=== PATIENT | female | born 1955 | race Caucasian/White ===

== ENCOUNTER 2016-12-20 19:19 | Emergency (ER) | payer OTHER ==
[~2016-12-20] VITALS: Ht 180.3 cm; Wt 93.0 kg
[~2016-12-20 19:19] MED LIST: ALEVE220 M1 PO; IBUPROFEN600 MG PO; MACROBID 100 M100 MG PO; TRAMADOL HCL50 MG PO; ULTRAM50 MG PO; VITAMIN B-125000 MCG SL
[2016-12-20] MEDS ORDERED: OMEPRAZOLE20 MG PO (22:31)
== END 2016-12-20 22:49 | disposition home or self-care (01) ==
LOC: ED 19:19
DX: K31.89 Other diseases of stomach and duodenum (principal); Z87.442 Personal history of urinary calculi; J45.909 Unspecified asthma, uncomplicated; Z88.2 Allergy status to sulfonamides; Z88.8 Allergy status to other drugs, medicaments and biological substances; Z88.5 Allergy status to narcotic agent; Z88.1 Allergy status to other antibiotic agents; Z79.899 Other long term (current) drug therapy
CPT/HCPCS: 80053; 81001; 83690; 85025; 85610; 85730; 87077; 87088; 87186; 99283

== ENCOUNTER 2017-12-23 22:38 | Emergency (ER) | payer OTHER ==
[~2017-12-23] VITALS: Ht 180.3 cm; Wt 93.0 kg
[~2017-12-23 22:38] MED LIST changes: +OMEPRAZOLE20 MG PO
[2017-12-23] MEDS ORDERED: ASPIRIN500 MG PO (22:55)
== END 2017-12-24 01:39 | disposition home or self-care (01) ==
LOC: ED 22:38
DX: E04.1 Nontoxic single thyroid nodule (principal); Z88.2 Allergy status to sulfonamides; Z88.8 Allergy status to other drugs, medicaments and biological substances; Z88.1 Allergy status to other antibiotic agents; Z88.5 Allergy status to narcotic agent; Z79.899 Other long term (current) drug therapy
CPT/HCPCS: 80053; 84436; 84439; 84443; 84479; 84480; 85025; 96360; 99284; J7030

== ENCOUNTER 2018-11-02 20:32 | Emergency (ER) | payer OTHER ==
[~2018-11-02] VITALS: Ht 180.3 cm; Wt 93.0 kg
--- OUTSIDE RECORDS SUMMARY | ~2018-11-02 | XMS | Clinical Summary ---
Demographics + + + | Address | [address] | | | [place] [address] | + + + | Home Phone | | + + + | Preferred Language | Unknown | + + + | Marital Status | | + + + | Faith Affiliation | 1013 | + + + | Race | Unknown | + + + | Ethnic Group | Unknown | + + + Author + + + | Author | [facility] | + + + | Organization | [facility] | + + + | Address | Unknown | + + + | Phone | Unavailable | + + + Support + + +---------+ + | Name | Relationship | Address | Phone | + + +---------+ + | Rolanda Lennon | ECON | Unknown | | + + +---------+ + Care Team Providers + +------+ + | Care Helmet Hat Brim Cutter Name | Role | Phone | + +------+ + | Los Self MD | PP | | + +------+ + Allergies + + + + + + | Active Allergy | Reactions | Severity | Noted | Comments | | | | | Date | | + + + + + + | Ciprofloxacin | Rash | Medium | 09/02/19 | | | | | | 18 | | + + + + + + | Codeine | Gera Jeff | High | 09/02/19 | And hives | | | Reaction | | 18 | | + + + + + + | Meperidine | Gera Jeff | High | 09/02/19 | | | | Reaction | | 18 | | + + + + + + | Hydrocodone | Hives | High | 09/02/19 | And gera | | | | | 18 | johnsons synd | + + + + + + | Oxycodone | Gera Jeff | High | 09/02/19 | And hives | | | Reaction | | 18 | | + + + + + + | Pipobroman | Hives | High | 10/24/19 | | | | | | 19 | | + + + + + + Current Medications + + +---------+---------+------+------+-------+ | Prescription | Sig. | Disp. | Refills | Star | End | Statu | | | | | | t | Date | s | | | | | | Date | | | + + +---------+---------+------+------+-------+ | aspirin 325 MG | Take 325 mg by mouth | | | | | Activ | | tablet | daily with | | | | | e | | | breakfast. | | | | | | + + +---------+---------+------+------+-------+ | vitamin E 400 UNIT | Take 400 Units by | | | | | Activ | | capsule | mouth daily. | | | | | e | + + +---------+---------+------+------+-------+ | cyanocobalamin | Take 1,000 mcg by | | | | | Activ | | (VITAMIN B-12) 1000 | mouth daily. | | | | | e | | MCG tablet | | | | | | | + + +---------+---------+------+------+-------+ | cholecalciferol | Take 1,000 Units by | | | | | Activ | | (VITAMIN D-3) 1000 | mouth daily. | | | | | e | | units tablet | | | | | | | + + +---------+---------+------+------+-------+ | CALCIUM PO | Take 250 mg by | | | | | Activ | | | mouth. | | | | | e | + + +---------+---------+------+------+-------+ | fish oil omega-3 | Take 1,000 mg by | | | | | Activ | | fatty acids 1000 MG | mouth. | | | | | e | | capsule | | | | | | | + + +---------+---------+------+------+-------+ | Artem Hernández | Take by mouth. | | | | | Activ | | Prudencio (TURMERIC | | | | | | e | | ROOT) POWD | | | | | | | + + +---------+---------+------+------+-------+ | gabapentin | Take 1 capsule by | 90 | 0 | 10/09 | 10/09 | Activ | | (NEURONTIN) 300 MG | mouth 3 (three) | capsule | | 10/28 | 09/28 | e | | capsule | times daily. 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 | +--------+---------+ + + + from Last 3 Months Family History + + +------+ + | Medical History | Relation | Name | Comments | + + +------+ + | No Known Problems | Brother | | | + + +------+ + | No Known Problems | Cousin | | | + + +------+ + | No Known Problems | Daughter | | | + + +------+ + | No Known Problems | Father | | | + + +------+ + | No Known Problems | Maternal | | | | | Aunt | | | + + +------+ + | Breast cancer | Maternal | | post ryan | | | Grandmoth | | | | | er | | | + + +------+ + | Breast cancer | Mother | | | + + +------+ + | No Known Problems | Paternal | | | | | Aunt | | | + + +------+ + | Breast cancer | Paternal | | | | | Grandmoth | | | | | er | | | + + +------+ + | BRCA 1/2 | Sister | | BRCA2 | + + +------+ + | No Known Problems | Son | | | + + +------+ + | Endometrial cancer | Neg Hx | | | + + +------+ + | Ovarian cancer | Neg Hx | | | + + +------+ + | Uterine cancer | Neg Hx | | | + + +------+ + + +------+--------+ + | Relation | Name | Status | Comments | + +------+--------+ + | Brother | | | | + +------+--------+ + | Cousin | | | | + +------+--------+ + | Daughter | | | | + +------+--------+ + | Father | | | | + +------+--------+ + | Maternal Aunt | | | | + +------+--------+ + | Maternal Grandmother | | | | + +------+--------+ + | Mother | | | | + +------+--------+ + | Paternal Aunt | | | | + +------+--------+ + | Paternal Grandmother | | | | + +------+--------+ + | Sister | | | | + +------+--------+ + | Son | | | | + +------+--------+ + Social History + +-------+ +--------+------+ | Tobacco Use | Types | Packs/Day | Years | Date | | | | | Used | | + +-------+ +--------+------+ | Never Smoker | | | | | + +-------+ +--------+------+ + +---+---+---+ | Smokeless Tobacco: | | | | | Never Used | | | | + +---+---+---+ + + +---------+ + | Alcohol Use | Drinks/We | oz/Week | Comments | | | ek | | | + + +---------+ + | No | | | | + + +---------+ + + + + | Sex Assigned at | Date Recorded | | | | + + + | Not on file | | + + + Last Filed Vital Signs + + + + | Vital Sign | Reading | Time Taken | + + + + | Blood Pressure | 102/66 | 09/19/2018 10:50 AM PDT | + + + + | Pulse | 61 | 09/19/2018 10:50 AM PDT | + + + + | Temperature | 36.7 C (98.1 F) | 09/01/2017 9:43 AM PDT | + + + + | Respiratory Rate | 16 | 09/01/2017 1:42 PM PDT | + + + + | Oxygen Saturation | 100% | 09/19/2018 10:50 AM PDT | + + + + | Inhaled Oxygen | - | - | | Concentration | | | + + + + | Weight | 95.3 kg (210 lb) | 10/23/2018 7:55 AM PDT | + + + + | Height | 154.9 cm (5' 1") | 10/23/2018 7:55 AM PDT | + + + + | Body Mass Index | 39.68 | 10/23/2018 7:55 AM PDT | + + + + Plan of Treatment +--------+---------+ + + + | Date | Type | Specialty | Care Team | Description | +--------+---------+ + + + | 11/20/ | Office | | Kobe Be DO | | | 2019 | Visit | | [address] [facility] | | | | | | [place] [address] | | | | | | [phone] | | | | | | | | +--------+---------+ + + + + + + + + | Health Maintenance | Due Date | Last Done | Comments | + + + + + | Cervical Cancer | | | | | Screening (Pap) | 8 | | | + + + + + | Colon Cancer | | | | | Screening | 8 | | | | (Colonoscopy) | | | | + + + + + | Vaccine: Zoster (1 | | | | | of 2) | 8 | | | + + + + + | Vaccine: Influenza | | 03/22/2017, 02/19/2013 | | | (Season Ended) | 9 | | | + + + + + | Breast Cancer | | 03/28/2018, 06/22/2017 | | | Screening | 0 | | | | (Mammogram) | | | | + + + + + | Vaccine: | | 12/10/2011 | | | Dtap/Tdap/Td (2 - | 2 | | | | Td) | | | | + + + + + Procedures + +--------+ + + + | Procedure Name | Priori | Date/Time | Associated Diagnosis | Comments | | | ty | | | | + +--------+ + + + | XR ELBOW LEFT | Routin | 09/19/2018 | Left elbow pain | Results for this | | | e | 11:16 AM | | procedure are in the | | | | PDT | | results section. | + +--------+ + + + | XR WRIST LEFT | Routin | 09/19/2018 | Pain and swelling | Results for this | | | e | 11:03 AM | of left wrist | procedure are in the | | | | PDT | | results section. | + +--------+ + + + from Last 3 Months Results X-ray elbow left (09/19/2018 11:16 AM) + + + | Impressions | Performed At | + + + | Left elbow shows normal osseous alignment without any fracture | [facility] | | nor dislocation Electronically signed by: Minor Walton MD | RADIOLOGY | | 09/19/2018 6:15 PM | | + + + + + + | Narrative | Performed At | + + + | INDICATION: | [facility] | | Left elbow and forearm pain COMPARISON: None TECHNIQUE: Multiple views | RADIOLOGY | | of the left elbow FINDINGS: Left elbow shows normal osseous alignment | | | without any fracture nor dislocation | | | | | |TECHNIQUE: Multiple views of the left elbow | | | | | |FINDINGS: Left elbow shows normal osseous alignment without any fracture | | |nor dislocation | | | | | + + + + + + + + | Performing | Address | City/State/Zipcode | Phone Number | | Organization | | | | + + + + + | [facility] | [address] | [place] [address] | | + + + + + X-ray wrist left (09/19/2018 11:03 AM) + + + | Impressions | Performed At | + + + | Left wrist shows normal osseous alignment but does show ulnar | [facility] | | positivity. No acute fracture noted. No carpal instability | RADIOLOGY | | noted. Electronically signed by: Minor Walton MD 09/19/2018 | | | 6:17 PM | | + + + + + + | Narrative | Performed At | + + + | INDICATION: | [facility] | | left wrist and forearm pain COMPARISON: None TECHNIQUE: Multiple views | RADIOLOGY | | of the left wrist FINDINGS: Left wrist shows normal osseous alignment | | | but does show ulnar positivity. No acute fracture noted. No | | | carpal instability noted. | | |TECHNIQUE: Multiple views of the left wrist | | | | | |FINDINGS: Left wrist shows normal osseous alignment but does show ulnar | | |positivity. No acute fracture noted. No carpal instability noted. | | | | | + + + + + + + + | Performing | Address | City/State/Zipcode | Phone Number | | Organization | | | | + + + + + | [facility] | [address] | [place] [address] | | + + + + + from Last 3 Months Insurance + +--------+ +------+-------+---------+ | Payer | Benefi | Subscriber | Type | Phone | Address | | | t Plan | ID | | | | | | / | | | | | | | Group | | | | | + +--------+ +------+-------+---------+ | L[employer]I - SELF INS | L&I - | [id number] | | | | | GENERIC | SELF | | | | | | | INS | | | | | | | GENERI | | | | | | | C | | | | | + +--------+ +------+-------+---------+ + +--------+ +--------+ + + | Guarantor Name | Accoun | Relation to | Date | Phone | Billing Address | | | t Type | Patient | of | | | | | | | | | | + +--------+ +--------+ + + | BHUMI JIANG | Worker | Self | [birth year] | Home: | [address] [employer] | | | s Comp | | 1955 | +- | [place] [address] | | | | | | [address] | | + +--------+ +--------+ + + | BHUMI JIANG | Person | Self | [birth year] | Home: | [address] [address] [address] | | | al/Fam | | 1955 | +- | , [place] [address] | | | alexandra | | | [birth year] | | + +--------+ +--------+ + +
--- OUTSIDE RECORDS SUMMARY | ~2018-11-02 | XMS | Encounter Summary ---
Demographics + + + | Address | [address] | | | [place] [address] | + + + | Home Phone | | + + + | Preferred Language | Unknown | + + + | Marital Status | | + + + | Judaism Affiliation | 1013 | + + + | Race | Unknown | + + + | Ethnic Group | Unknown | + + + Author + + + | Author | [facility] | + + + | Organization | [facility] | + + + | Address | Unknown | + + + | Phone | Unavailable | + + + Support + + +---------+ + | Name | Relationship | Address | Phone | + + +---------+ + | Rolanda Lennon | ECON | Unknown | | + + +---------+ + Care Team Providers + +------+ + | Care Behavior Support Specialist Name | Role | Phone | + +------+ + | Kei Self MD | PCP | | + +------+ + Reason for Visit + + + | Reason | Comments | + + + | Hand Pain | left wrist pain | + + + Consultation (Routine) + + + + + + + | Status | Reason | Specialty | Diagnoses / | Referred By | Referred To | | | | | Procedures | Contact | Contact | + + + + + + + | Authorized | Specialty | Dolorology | Diagnoses | [place], | [facility] | | | Services | | Pain and | Minor Junior MD | [place] | | | Required | | swelling of | [address] | Pain Mgmt | | | | | left wrist | [address] | [address] | | | | | Complex | [place], [place] | [place], | | | | | regional | [address] | [place] | | | | | pain | Phone: | [phone] | | | | | syndrome | [phone] | Phone: | | | | | type 1 of | Fax: | [phone] | | | | | left upper | [phone] | Fax: | | | | | extremity | | [phone] | + + + + + + + Encounter Details +--------+---------+ + + + | Date | Type | Department | Care Team | Description | +--------+---------+ + + + | 10/23/ | Office | [facility] | Kobe Be DO | Left wrist pain | | 2019 | Visit | [facility] | [address] | (Primary Dx) | | | | MEDICINE [facility] | [place] [address] | | | | | PAIN [address] | [phone] | | | | | [place], [place] | | | | | | [address] | | | | | | [phone] | | | +--------+---------+ + + + Social History + +-------+ +--------+------+ | [...] on file | | + + + as of this encounter Last Filed Vital Signs + + + + | Vital Sign | Reading | Time Taken | + + + + | Blood Pressure | - | - | + + + + | Pulse | - | - | + + + + | Temperature | - | - | + + + + | Respiratory Rate | - | - | + + + + | Oxygen Saturation | - | - | + + + + | Inhaled [...] AM PDT | + + + + in this encounter Progress Notes Kobe Be DO - 10/23/2018 8:00 AM PDTFormatting of this note may be different from micah mendez. [facility]: Interventional Pain Management 10/23/2018 Bhumi Dobbins [place] 1955 Chief Complaint Patient presents with Hand Pain left wrist pain HISTORY OF PRESENT ILLNESS Hand Pain The incident occurred more than 1 week ago. The pain is present in the left hand and left w rist. The quality of the pain is described as aching and stabbing. The pain radiates to the left hand. The pain is at a severity of 4/10. The pain is mild. Associated symptoms include numbness. Pertinent negatives include no chest pain. The treatment provided mild relief. REVIEW OF SYSTEMS Review of Systems Constitutional: Positive for activity change. Negative for appetite change, fatigue and fev er. HENT: Negative for congestion, trouble swallowing and voice change. Eyes: Negative for photophobia, discharge and visual disturbance. Respiratory: Negative for apnea, cough, shortness of breath and wheezing. Cardiovascular: Negative for chest pain, palpitations and leg swelling. Gastrointestinal: Negative for abdominal pain, diarrhea, nausea and vomiting. Endocrine: Negative for cold intolerance, heat intolerance and polyuria. Musculoskeletal: Positive for arthralgias, back pain and gait problem. Negative for joint s welling and neck pain. Skin: Negative for color change and rash. Allergic/Immunologic: Negative for environmental allergies and food allergies. Neurological: Positive for numbness. Negative for dizziness, seizures, weakness, light-head edness and headaches. Hematological: Does not bruise/bleed easily. Psychiatric/Behavioral: Negative for dysphoric mood and suicidal ideas. The patient is not nervous/anxious. All other systems reviewed and are negative. Past Medical History Diagnosis Date Breast disorder Breast pain 03/28/2018 x1mos christine diffuse Chronic kidney disease Pernicious anemia Postmenopausal status approx 33 Thoracic outlet syndrome Past Surgical History Procedure Laterality Date BREAST EXCISIONAL BIOPSY Right age 33 benign CHOLECYSTECTOMY HYSTERECTOMY OOPHORECTOMY Bilateral age 33 UNLISTED PROCEDURE ARTHROSCOPY Allergies Allergen Reactions Codeine Cisneros Tomer Reaction And hives Demerol [Meperidine] Cisneros Tomer Reaction Hydrocodone Hives And cisneros johnsons synd Oxycodone Cisneros Tomer Reaction And hives Vercyte [Pipobroman] Hives Ciprofloxacin Rash Prior to Admission medications Medication Sig Start Date End Date Taking? Authorizing Provider aspirin 325 MG tablet Take 325 mg by mouth daily with breakfast. Yes Historical Provider CALCIUM PO Take 250 mg by mouth. Yes Historical Provider cholecalciferol (VITAMIN D-3) 1000 units tablet Take 1,000 Units by mouth daily. Yes Hist orical Provider cyanocobalamin (VITAMIN B-12) 1000 MCG tablet Take 1,000 mcg by mouth daily. Yes Historic al Provider fish oil omega-3 fatty acids 1000 MG capsule Take 1,000 mg by mouth. Yes Historical Provi larry Turmeric, Curcuma Longa, (TURMERIC ROOT) POWD Take by mouth. Yes Historical Provider vitamin E 400 UNIT capsule Take 400 Units by mouth daily. Yes Historical Provider Family History Problem Relation Age of Onset Breast cancer Mother 58 BRCA 1/2 Sister BRCA2 No Known Problems Daughter Breast cancer Maternal Grandmother post ryan No Known Problems Maternal Aunt No Known Problems Father No Known Problems Brother No Known Problems Son Breast cancer Paternal Grandmother 36 No Known Problems Paternal Aunt No Known Problems Cousin Ovarian cancer Neg Hx Uterine cancer Neg Hx Endometrial cancer Neg Hx Social History Social History Marital status: Spouse name: N/A Number of children: N/A Years of education: N/A Occupational History Not on file. Social History Main Topics Smoking status: Never Smoker Smokeless tobacco: Never Used Alcohol use No Drug use: No Sexual activity: Not on file Other Topics Concern Not on file Social History Narrative No narrative on file PHYSICAL EXAM Vital Signs: Ht 1.549 m (5' 1") | Wt 95.3 kg (210 lb) | BMI 39.68 kg/m Physical Exam Constitutional: She is oriented to person, place, and time. She appears well-developed and well-nourished. HENT: Head: Normocephalic and atraumatic. Eyes: Conjunctivae are normal. Neck: No tracheal deviation present. Cardiovascular: Normal rate and regular rhythm. Pulmonary/Chest: Effort normal. Abdomina/Gl: Soft. Bowel sounds are normal. Neurological: She is alert and oriented to person, place, and time. Skin: Skin is warm and dry. Psychiatric: She has a normal mood and affect. Her behavior is normal. Judgment normal. Vitals reviewed. Left Hand Exam Tenderness The patient is experiencing tenderness in the ann area. Range of Motion Wrist Extension: abnormal Flexion: abnormal Pronation: abnormal Supination: abnormal DATA No results found. PROBLEM LIST 1. Left wrist pain ASSESSMENT & PLAN Mrs. Fontaine is a 63-year-old female here complaining of left-sided wrist pain without any s igns or symptoms of CRPS. She does not have any hypersensitivity. No skin color changes. She does have decreased range of motion, though and tenderness to palpation. We did discuss starting her on gabapentin 300 mg and then have her follow up in a month for reevaluation. I do not think stellate ganglion block would help her at this time. She does agree with e plan. We did go over the risks and benefits of the medication. She was given a copy of h APF form and we do look forward to continue participating in her care. Responsible narcotic and sedative use was discussed with our patient. Prescription medicat ions that are used on a "prn" basis should only be taken when the pain is severe. Potential side effects in addition to the potential for abuse and addiction were discussed. Most pat ients, including the general public, are not aware that a number of these medicines are FDA approved for the treatment of severe pain associated with cancer and were never intended for use in patients that had surgically correctable conditions. When the pain is mild or moderate, ice, stretching, and relaxation techniques are useful. Also medicines such as plain tylenol, ibuprofen and aspirin are more suitable for mild or mo derate pain. Our patient was encouraged to read the package inserts to their prescriptions and to discus s these medicines with their personal physician or pharmacist. Narcotics, sedatives, muscle relaxants and neuroleptics are not benign medicines. Common side effect include nausea, vo miting, constipation, drowsiness, dizziness, headache, sleeplessness, and weakness. Difficu lty with urinating, decreased libido, and sexual dysfunction are noted in men and women. Ma nv men will suffer erectile dysfunction with these medicines. Severe side effects including , heart attacks, strokes, seizures, and high fevers are noted from acute overdose or chronic overuse. Most patient develop tolerance to theses medi cines leading them to take more medicine for pain relief. This increasing tolerance leads t o a greater rate of side effects and complications with the passage of time. long-term use is also associated with depressions, and liver and renal failure. Finally, these medicines are associated with both physical and emotional addiction and can be difficult to stop after taking for only a few weeks. Patient is currently participating in home exercises. Primary Care Physician: KEI SELF follow up Kobe BeDO 10/23/2018 This document has been prepared with isango! voice recognition system. The possibility of "s ound alike" wind farm electrical systems designer errors, and additions, or deletions may occur. If there is any que stion with respect to clarity of the message being conveyed, please contact me directly for clarification.in this encounter Plan of Treatment +--------+---------+ + + + | Date | Type | Specialty | Care Team | Description | +--------+---------+ + + + | 11/20/ | Office | Dolorology | Kobe Be | | | 2019 | Visit | | [address] [facility] | | | | | | [place] [address] | | | | | | [phone] | | | | | | | | +--------+---------+ + + + as of this encounter Visit Diagnoses + + | Diagnosis | + + | Left wrist pain - Primary | + + | Pain in joint, forearm | + +
--- OUTSIDE RECORDS SUMMARY | ~2018-11-02 | XMS | Encounter Summary ---
Demographics + + + | Address | [address] | | | [place] [address] | + + + | Home Phone | | + + + | Preferred Language | Unknown | + + + | Marital Status | | + + + | Pentecostalism Affiliation | 1013 | + + + | Race | Unknown | + + + | Ethnic Group | Unknown | + + + Author + + + | Author | [facility] | + + + | Organization | [facility] | + + + | Address | Unknown | + + + | Phone | Unavailable | + + + Support + + +---------+ + | Name | Relationship | Address | Phone | + + +---------+ + | Rolanda Lennon | ECON | Unknown | | + + +---------+ + Care Team Providers + +------+ + | Care Head Mechanic Name | Role | Phone | + +------+ + | Kei Self MD | PCP | | + +------+ + Reason for Referral Consultation (Routine) + + + + + + + | Status | Reason | Specialty | Diagnoses / | Referred By | Referred To | | | | | Procedures | Contact | Contact | + + + + + + + | Authorized | Specialty | Dolorology | Diagnoses | Isabelle | [facility] | | | Services | | Pain and | Minor Junior MD | Alex | | | Required | | swelling of | [address] | Pain Mgmt | | | | | left wrist | [address] | [address] | | | | | Complex | [place], [place] | [address] [place], | | | | | regional | [address] | [place] | | | | | pain | Phone: | [address] | | | | | syndrome | [phone] | Phone: | | | | | type 1 of | Fax: | [phone] | | | | | left upper | [phone] | Fax: | | | | | extremity | | [phone] | + + + + + + + Reason for Visit + + + | Reason | Comments | + + + | Hand Pain | Left hand pain | + + + Surgical (Routine) +--------+--------+ + + + + | Status | Reason | Specialty | Diagnoses / | Referred By | Referred To | | | | | Procedures | Contact | Contact | +--------+--------+ + + + + | Closed | | Orthopedic | Diagnoses | Shine, | Isabelle, | | | | Surgery | Lt Wrist, | MD Chris | Minor Junior MD | | | | | Fore arm, | [address] | [address] | | | | | | Nate Kelly | [facility], | | | | | | [place], | [place] [address] | | | | | | [place] | Phone: | | | | | | [address] | [phone] | | | | | | Phone: | Fax: | | | | | | [phone] | [phone] | | | | | | Fax: | | | | | | | [phone] | | +--------+--------+ + + + + Encounter Details +--------+---------+ + + + | Date | Type | Department | Care Team | Description | +--------+---------+ + + + | 09/19/ | Office | [facility] | Minor Walton, | Pain and swelling of | | 2019 | Visit | [facility]O [facility]TS | MD Анрдей PALACIOS | left wrist (Primary | | | | MEDICINE [facility]LEX | [place] [address] | Dx); Left elbow | | | | [address] | [phone] | pain; Complex | | | | [place] | | regional pain | | | | [address] | | syndrome type 1 of | | | | [phone] | | left upper extremity | +--------+---------+ + + + Social History [...] Weight | 95.3 kg (210 lb) | 09/19/2018 10:50 AM PDT | + + + + | Height | 180.3 cm (5 11") | 09/19/2018 10:50 AM PDT | + + + + | Body Mass Index | 29.29 | 09/19/2018 10:50 AM PDT | + + + + in this encounter Progress Notes Minor Walton MD - 09/19/2018 10:30 AM PDTFormatting of this note may be different from the original. [facility]: Orthopedic Surgery Patient Name:Bhumi Fontaine AGE: 62 y.o. :1955 CHIEF COMPLAINT: Hand Pain (Left hand pain ) Left forearm pain HPI HISTORY OF PRESENT ILLNESS Patient is a very pleasant 62-year-old female who was involved in a crush type injury to th e forearm back in January of last year. She has pain in the mid forearm that will radiate in to the wrist. The pain is exacerbated with pressure as well as light touch relieved only pa rtially with rest. No further radiation of the pain except for occasional pain in the elbow . The problem is constant and of moderate to severe severity. She has significant sensitiv ity to light touch throughout the forearm and the hand. No significant numbness or tingling . No signs of myelopathy nor radiculopathy. REVIEW OF SYSTEMS, comprehensive review of systems performed and is negative except for not ed above and below Review of Systems Past Medical History Diagnosis Date Breast disorder [...] synd Oxycodone Cisneros Tomer Reaction And hives Ciprofloxacin Rash Prior to Admission medications Medication Sig Start Date End Date Taking? Authorizing Provider aspirin 325 MG tablet Take 325 mg by mouth daily with breakfast. Historical Provider cholecalciferol (VITAMIN D-3) 1000 units tablet Take 1,000 Units by mouth daily. Histori alayna Provider cyanocobalamin (VITAMIN B-12) 1000 MCG tablet Take 1,000 mcg by mouth daily. Historical Provider vitamin E 400 UNIT capsule Take 400 Units by mouth daily. Historical Provider Family History Problem Relation Age [...] narrative on file PHYSICAL EXAM Vital Signs: BP 102/66 | Pulse 61 | Ht 1.803 m (5' 11") | Wt 95.3 kg (210 lb) | SpO2 100% | BMI 29. 29 kg/m Physical Exam Well developed well nourished patient No acute distress Alert and oriented times three Head and neck are normal Oropharynx is clear Gaze is conjugate Breathing is unlabored Heart is regular rate and rhythm Ortho Exam LUE Skin is clean, dry and intact Brisk cap refill 2+ pulses No deficits noted Motor and sensation are intact; the patient does have hyper sensitivity to light touch thro ughout the forearm and hand that does not follow a particular dermatomal nor peripheral nerv e distribution. Pain noted over the DRUJ but no instability. Supination limited to about 4 5 degrees pronation to 80 degrees. No instability noted in the elbow. No masses, no lymphadenopathy Normal sweat patterns No hyperreflexia Negative van's maneuver Compartments are soft and compressible X-ray Elbow Left Result Date: 09/19/2018 INDICATION: Left elbow and forearm pain COMPARISON: None TECHNIQUE: Multiple views of the l eft elbow FINDINGS: Left elbow shows normal osseous alignment without any fracture nor dislo cation Left elbow shows normal osseous alignment without any fracture nor dislocation Electronica lly signed by: Minor Walton MD 09/19/2018 6:15 PM X-ray Wrist Left Result Date: 09/19/2018 INDICATION: left wrist and forearm pain COMPARISON: None TECHNIQUE: Multiple views of the l eft wrist FINDINGS: Left wrist shows normal osseous alignment but does show ulnar positivity . No acute fracture noted. No carpal instability noted. Left wrist shows normal osseous alignment but does show ulnar positivity. No acute fractu re noted. No carpal instability noted. Electronically signed by: Minor Walton MD 09/20/19 19 6:17 PM Radiographs reviewed by me with patient today in detail. All questions answered, report rev iewed as well PROBLEM LIST Encounter Diagnoses Name Primary? Pain and swelling of left wrist Yes Left elbow pain Complex regional pain syndrome type 1 of left upper extremity ASSESSMENT & PLAN We had a thorough discussion of risks and benefits. This is a complex decision with multipl e options. Each option discussed in detail. All questions answered. First and foremost would like to have a hypersensitivity evaluated and possibly treated by my partner Dr. Be. She may be a candidate for stellate ganglion blocks. Once this is under control we could think about ulnar shortening osteotomy versus distal ul angela resection. Risks and benefits of procedures discussed. All questions answered. Follow -up after consultation with Dr. Be. APF form filled out for patient, faxed to [facility]. Restrictions discussed and reviewed with patient. Discussed three johnston messages on back of APF form with patient Primary Care Physician: KEI Walton MD This document has been prepared with [employer] voice recognition system. The possibility of "s ound alike" rn examiner errors, and additions, or deletions may occur. If there is any que stion with respect to clarity of the message being conveyed, please contact me directly for clarification. in this encounter Plan of Treatment +--------+---------+ + + + | Date | Type | Specialty | Care Team | Description | +--------+---------+ + + + | 11/20/ | Office | Dolorology | Kobe Be, | | | 2019 | Visit | | [address] [facility] | | | | | | [place] [address] | | | | | | [phone] | | | | | | | | +--------+---------+ + + + + +--------+ + + | Name | Priori | Associated Diagnoses | Order Schedule | | | ty | | | + +--------+ + + | Ambulatory referral to Pain | Routin | Pain and swelling | Ordered: 09/19/2018 | | Clinic | e | of left wrist | | | | | Complex regional | | | | | pain syndrome type 1 | | | | | of left upper | | | | | extremity | | + +--------+ + + as of this encounter Results X-ray elbow left (09/19/2018 11:16 AM) [...] | + + + + + | [facility] | [address] | [place] [address] | | + + + + + [...] | + + + + + | [facility] | [address] | [place] [address] | | + + + + + in this encounter Visit Diagnoses + + | Diagnosis | + + | Pain and swelling of left wrist - Primary | + + | Left elbow pain | + + | Pain in joint, upper arm | + + | Complex regional pain syndrome type 1 of left upper extremity | + +
--- OUTSIDE RECORDS SUMMARY | ~2018-11-02 | XMS | Clinical Summary ---
Demographics + + + | Address | [address] | | | [place] [address] | + + + | Home Phone | | + + + | Preferred Language | Unknown | + + + | Marital Status | | + + + | Christian Affiliation | 1013 | + + + | Race | Unknown | + + + | Ethnic Group | Unknown | + + + Author + + + | Author | [facility] | | | and [place] | + + + | Organization | [facility] | | | and [place] | + + + | Address | Unknown | + + + | Phone | Unavailable | + + + Support + + +---------+ + | Name | Relationship | Address | Phone | + + +---------+ + | Rolanda Lennon | ECON | Unknown | | + + +---------+ + Care Team Providers + +------+ + | Care General Expeditor Name | Role | Phone | + +------+ + | Los Self MD | PP | | + +------+ + Allergies + + + + + + | Active Allergy | Reactions | Severity | Noted | Comments | | | | | Date | | + + + + + + | Ciprofloxacin | Rash, Hives | Medium | 10/27/19 | | | | | | 17 | | + + + + + + | Codeine | Hives, Other (See | High | 08/08/19 | Blayne Jeff | | | Comments) | | 15 | Reaction | + + + + + + | Erythromycin Base | Hives | | | | + + + + + + | Hydrocodone | Hives, Other (See | High | 08/08/19 | blayne goddard | | | Comments) | | 15 | synd | + + + + + + | Meperidine | Hives, Other (See | High | 06/21/19 | Blayne Jeff | | | Comments) | | 18 | Reaction | + + + + + + | Midazolam | Rash, Hivang | Medium | 06/21/19 | | | | | | 18 | | + + + + + + | Oxycodone | Hives, Rash, Other | High | 08/08/19 | Blayne Jeff | | | (See Comments) | | 15 | Reaction | + + + + + + | Prochlorperazine | Other (See Comments) | | 07/09/19 | Aggitation | | | | | 18 | | + + + + + + | Rifampin | Anaphylaxis | High | | | + + + + + + | Sulfa Antibiotics | Other (See Comments) | | | Reaction not | | | | | | specified in outside | | | | | | medical records | + + + + + + | Tramadol | Nausea Only | | 01/29/20 | | | | | | 18 | | + + + + + + Medications + + + +---------+------+------+-------+ | Medication | Sig | Dispensed | Refills | Star | End | Statu | | | | | | t | Date | s | | | | | | Date | | | + + + +---------+------+------+-------+ | cyanocobalamin | Take 500 mcg by | | 0 | | | Activ | | (VITAMIN B-12) 500 | mouth Daily. | | | | | e | | mcg tablet | | | | | | | + + + +---------+------+------+-------+ | | Take by mouth 2 | | 0 | | | Activ | | GLUCOSAMINE-CHONDROI | times daily. | | | | | e | | TIN PO | | | | | | | + + + +---------+------+------+-------+ | Calcium 250 MG | Take 250 mg by mouth | | 0 | | | Activ | | CAPS | Daily. | | | | | e | + + + +---------+------+------+-------+ | cyclobenzaprine | Take 5 mg by mouth 3 | | 0 | | | Activ | | (FLEXERIL) 10 mg | times daily as | | | | | e | | tablet | needed for Muscle | | | | | | | | spasms. | | | | | | + + + +---------+------+------+-------+ | acetaminophen | Take 1 tablet by | | 0 | | | Activ | | (TYLENOL) 500 mg | mouth as needed. | | | | | e | | tablet | | | | | | | + + + +---------+------+------+-------+ | aspirin 325 mg | Take 325 mg by mouth | | 0 | | | Activ | | tablet | as needed. | | | | | e | + + + +---------+------+------+-------+ | Lutein 10 MG TABS | Take 10 mg by mouth | | 0 | | | Activ | | | Daily. | | | | | e | + + + +---------+------+------+-------+ | fish oil 1,000 mg | Take 1,000 mg by | | 0 | | | Activ | | capsule | mouth 3 times daily. | | | | | e | + + + +---------+------+------+-------+ | Turmeric Curcuma | Take by mouth | | 0 | | | Activ | | Longa, (TURMERIC | Daily. | | | | | e | | ROOT) POWD | | | | | | | + + + +---------+------+------+-------+ | cholecalciferol | Take 1,000 Units by | | 0 | | | Activ | | (VITAMIN D-3) 1,000 | mouth. | | | | | e | | units tablet | | | | | | | + + + +---------+------+------+-------+ | ibuprofen (ADVIL, | Take 200 mg by mouth | | 0 | | | Activ | | MOTRIN) 200 mg | as needed. | | | | | e | | tablet | | | | | | | + + + +---------+------+------+-------+ | Ginkgo Biloba | Take 120 mg by | | 0 | | | Activ | | (GINKOBA PO) | mouth. | | | | | e | + + + +---------+------+------+-------+ | MULTIPLE VITAMINS | Take by mouth. | | 0 | | | Activ | | PO | | | | | | e | + + + +---------+------+------+-------+ Active Problems + + + | Problem | Noted Date | + + + | Pharyngeal dysphagia | 12/25/2017 | + + + + + | Overview: Last Assessment & Plan: | | Will refer to GI. | | | | Will also get videofluoroscopy. | | | | Return after studies. | | | | Has never had colonoscopy | | | | Doubt that small nodule is cause of difficulty swallowing. | + + + + + | Bowel and bladder incontinence | 12/24/2017 | + + + | Lumbar spinal stenosis | 12/24/2017 | + + + | Right leg weakness | 12/24/2017 | + + + | Lumbar radiculopathy | 12/24/2017 | + + + | Neuroforaminal stenosis of lumbar spine | 12/24/2017 | + + + | Left thyroid nodule | 09/04/2017 | + + + + + | Overview: Overview: | | hyperenhancing nodule of left thyroid measuring 6mm. | | | | Last Assessment & Plan: | | Possible autoimmune process. | | | | Will test for autoantibodies if not already done. | | | | Records requested. | | | | Repeat in [facility] in 6 months. | + + + + + | Abnormal reflexes | 07/11/2017 | + + + + + | Overview: Last Assessment & Plan: | | Keep appointment with neurologist. | + + + + + | Pernicious anemia | 07/11/2017 | + + + + + | Overview: Last Assessment & Plan: | | Lab is normal. | | | | Corrected with daily oral supplement | + + Immunizations + + + + | Name | Dates Previously Given | Next Due | + + + + | INFLUENZA, | 03/22/2017, 03/22/2017, 02/19/2013, | | | UNSPECIFIED | 02/19/2013 | | | FORMULATION | | | + + + + | TDAP, (ADOL/ADULT) | 12/10/2011 | | + + + + Family History + + +---------+ + | Medical History | Relation | Name | Comments | + + +---------+ + | Fibromyalgia | Brother | | | + + +---------+ + | No known problems | Child | | | + + +---------+ + | Cancer | Father | | bone | + + +---------+ + | Heart disease | Father | | | + + +---------+ + | Kidney disease | Father | | | + + +---------+ + | Cancer | Maternal | | | | | Aunt | | | + + +---------+ + | * | Maternal | | Poliomyelitis | | | Grandfath | | | | | er | | | + + +---------+ + | Cancer | Maternal | | bone, breast, lung | | | Grandmoth | | | | | er | | | + + +---------+ + | Cancer | Mother | | breast, bone | + + +---------+ + | Diabetes | Mother | | | + + +---------+ + | Heart disease | Mother | | | + + +---------+ + | Kidney disease | Mother | | | + + +---------+ + | Cancer | Paternal | | bone, leukemia | | | Grandfath | | | | | er | | | + + +---------+ + | Schizophrenia | Paternal | | | | | Grandfath | | | | | er | | | + + +---------+ + | Cancer | Paternal | | bone | | | Grandmoth | | | | | er | | | + + +---------+ + | Alzheimer's disease | Paternal | | | | | Uncle | | | + + +---------+ + | Sjogren's syndrome | Sister | Rolanda | | | | | Lennon | | + + +---------+ + | Cancer | Sister | Lizz | | + + +---------+ + | Autism | Son | | | + + +---------+ + + +---------+--------+ + | Relation | Name | Status | Comments | + +---------+--------+ + | Brother | | | | + +---------+--------+ + | Child | | | | + +---------+--------+ + | Father | | | | + +---------+--------+ + | Maternal Aunt | | | | + +---------+--------+ + | Maternal Grandfather | | | | + +---------+--------+ + | Maternal Grandmother | | | | + +---------+--------+ + | Mother | | | | + +---------+--------+ + | Paternal Grandfather | | | | + +---------+--------+ + | Paternal Grandmother | | | | + +---------+--------+ + | Paternal Uncle | | | | + +---------+--------+ + | Sister | Rolanda | Alive | | | | Lennon | | | + +---------+--------+ + | Sister | Lizz | Alive | | + +---------+--------+ + | Son | | | | + +---------+--------+ + Social History + +-------+ +--------+------+ | [...] on file | | + + + + + + + | Job Start Date | Occupation | Industry | + + + + | Not on file | Not on file | Not on file | + + + + + + + + | Travel History | Travel Start | Travel End | + + + + + + | No recent travel history available. | + + Last Filed Vital Signs + + + + | Vital Sign | Reading | Time Taken | + + + + | Blood Pressure | 99/77 | 01/28/2018 0950 PDT | + + + + | Pulse | 66 | 01/28/2018949 PDT | + + + + | Temperature | 36.6 C (97.9 F) | 10/09/20171606 PDT | + + + + | Respiratory Rate | 16 | 09/07/20171450 PDT | + + + + | Oxygen Saturation | 98% | 09/07/20171450 PDT | + + + + | Inhaled Oxygen | - | - | | Concentration | | | + + + + | Weight | 93 kg (205 lb) | 01/28/2018949 PDT | + + + + | Height | 177.8 cm (5' 10") | 01/28/201850 PDT | + + + + | Body Mass Index | 29.41 | 01/28/201850 PDT | + + + + Plan of Treatment + + + + + | Health Maintenance | Due Date | Last Done | Comments | + + + + + | Breast Cancer | | | | | Screening (Ages | 8 | | | | 50-74) | | | | + + + + + | Colorectal Cancer | | 1955 | | | Screening | 8 | [...] | + + + + + | Hepatitis C | Completed | 07/11/2017 | | | Screening | | | | + + + + + Results Not on filefrom Last 3 Months Insurance + +--------+ +--------+ +---------+--------+ | Payer | Benefi | Subscriber | Effect | Phone | Address | Type | | | t Plan | ID | josue | | | | | | / | | Dates | | | | | | Group | | | | | | + +--------+ +--------+ +---------+--------+ | [place] | [place] | [id number] | | | | Indemn | | | FIRST | | 018-Pr | | | ity | | | WC | | esent | | | | + +--------+ +--------+ +---------+--------+ | ADMINISTRATIVE | ADMINI | [id number] | | [phone] | | PPO | | CONCEPTS | STRATI | | 018-Pr | 6 | | | | | VE | | esent | | | | | | CONCEP | | | | | | | | TS INC | | | | | | + +--------+ +--------+ +---------+--------+ + +--------+ +--------+ + + | Guarantor Name | Accoun | Relation to | Date | Phone | Billing Address | | | t Type | Patient | of | | | | | | | | | | + +--------+ +--------+ + + | Bhumi Fontaine | Person | Self | [birth year] | | [address] [employer]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 | | | al/Fam | | 1955 | [phone] | [place] [address] | | | alexandra | | | 3 (Home) | | + +--------+ +--------+ + + | Bhumi Fontaine | Worker | Self | [birth year] | | [address] 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 | | | s Comp | | 8 | [phone] | [place] [address] | | | | | | 3 (Home) | | + +--------+ +--------+ + + | Bhumi Fontaine | Worker | Self | [birth year] | | NEED ADDRESS | | | s Comp | | 1956 | [phone] | [place] [address] | | | | | | 3 (Home) | | + +--------+ +--------+ + + | Bhumi Fontaine | Worker | Self | [birth year] | | NEED ADDRESS | | | s Comp | | 1956 | [phone] | [place] [address] | | | | | | 3 (Home) | | + +--------+ +--------+ + + Advance Directives Patient has advance care planning documents on file. For more information, please contact:[facility] [place] [address]
--- OUTSIDE RECORDS SUMMARY | ~2018-11-02 | XMS | Encounter Summary ---
Demographics + + + | Address | [address] | | | [place] [address] | + + + | Home Phone | | + + + | Preferred Language | Unknown | + + + | Marital Status | | + + + | Scientologist Affiliation | 1013 | + + + | Race | Unknown | + + + | Ethnic Group | Unknown | + + + Author + + + | Author | [facility] | + + + | Organization | [facility] | + + + | Address | Unknown | + + + | Phone | Unavailable | + + + Support + + +---------+ + | Name | Relationship | Address | Phone | + + +---------+ + | Rolanda Lennon | ECON | Unknown | | + + +---------+ + Care Team Providers + +------+ + | Care Forest Ecologist Name | Role | Phone | + [...] Pain and | Minor Junior MD | [place] | | | Required | | swelling of | [address] | Pain Mgmt | | | | | left wrist | [address] | [address] | | | | | Complex | [place], [place] | [address] [place], | | | | | regional | [address] | [place] | | | | | pain | Phone: | [phone] | | | | | syndrome | [phone] | Phone: | | | | | type 1 of | Fax: | [phone] | | | | | left upper | [phone] | Fax: | | | | | extremity | | [phone] | + + + + + + + Encounter Details +--------+---------+ + + + | Date | Type | Department | Care Team | Description | +--------+---------+ + + + | 10/23/ | Office | [facility] | Kobe Be DO | Left wrist pain | | 2019 | Visit | [facility] | [address] | (Primary Dx) | | | | MEDICINE [place]RL[place] | [place] [address] | | | | | PAIN [address] | [phone] | | | | | [place], [place] | | | | | | [address] | | | | | | [phone] | | | +--------+---------+ + + + [...] note may be different from micah mendez. [facility]: Interventional Pain Management 10/23/2018 Bhumi [...] are noted in men and women. Ma la men will suffer erectile dysfunction with these [...] and complications with the passage of time. halfway use is also associated with depressions, and liver and renal failure. Finally, these medicines are associated with both physical and emotional addiction and can be difficult to stop after taking for only a few weeks. Patient is currently participating in home exercises. Primary Care Physician: KEI SELF follow up Kobe BeDO 10/23/2018 This document has been prepared with [employer] voice recognition system. The possibility of "s ound alike" process control programmer errors, and additions, or deletions may occur. [...] | 2019 | Visit | | [address] [facility] | | | | | | [place] [address] | | | | | | [phone] | | | | | | | | +--------+---------+ + + + as of this encounter Visit Diagnoses + + | Diagnosis | + + | Left wrist pain - Primary | + + | Pain in joint, forearm | + +
--- OUTSIDE RECORDS SUMMARY | ~2018-11-02 | XMS | Clinical Summary ---
Demographics + + + | Address | [address] | | | [place] [address] | + + + | Home Phone | | + + + | Preferred Language | Unknown | + + + | Marital Status | | + + + | Jain Affiliation | 1013 | + + + | Race | Unknown | + + + | Ethnic Group | Unknown | + + + Author + + + | Author | [facility] | + + + | Organization | [facility] | + + + | Address | Unknown | + + + | Phone | Unavailable | + + + Support + + +---------+ + | Name | Relationship | Address | Phone | + + +---------+ + | Rolanda Lennon | ECON | Unknown | | + + +---------+ + Care Team Providers + +------+ + | Care Trauma Director Name | Role | Phone | + [...] | 2019 | Visit | | [address] [facility] | | | | | | [place] [address] | | | | | | [phone] | | | | | | | [...] | + + + + + | [facility] | [address] | [place] [address] | | + + + + + [...] | + + + + + | [facility] | [address] | [place] [address] | | + + + + + [...] - SELF INS | L&I - | [phone] | | | | | GENERIC | [...] [birth year] | Home: | [address] [employer]PERATOR | | | s Comp | | 1955 | +- | [place] [address] | | | | | | [birth year] | | + +--------+ +--------+ + + | BHUMI JIANG | Person | Self | [birth year] | Home: | [address] [employer] | | | al/Fam | | 1955 | +- | , [place] [address] | | | alexandra | | | [birth year] | | + +--------+ +--------+ + +
--- OUTSIDE RECORDS SUMMARY | ~2018-11-02 | XMS | Clinical Summary ---
Demographics + + + | Address | [address] | | | [place] [address] | + + + | Home Phone | | + + + | Preferred Language | Unknown | + + + | Marital Status | | + + + | Tenriism Affiliation | 1013 | + + + | Race | Unknown | + + + | Ethnic Group | Unknown | + + + Author + + + | Author | [facility] | | | and [place] | + + + | Organization | [facility] | | | and [...] Team Providers + +------+ + | Care Topstitcher Zigzag Name | Role | Phone | + [...] requested. | | | | Repeat in [facility] in 6 months. | + + + [...] | | + +--------+ +--------+ +---------+--------+ | [employer] | [employer] | [phone] | | | | Indemn | | | FIRST | | 018-Pr | | | ity | | | WC | | esent | | | | + +--------+ +--------+ +---------+--------+ | ADMINISTRATIVE | ADMINI | [id number] | | [phone] | | PPO | | CONCEPTS | [...] | [birth year] | | [address] [place] | | | al/Fam | | 1955 | [phone] | [place] [address] | | | alexandra | | | 3 (Home) | | + +--------+ +--------+ + + | Bhumi Fontaine | Worker | Self | [birth year] | | [address] [place] | | | s Comp | | 8 [phone] | [place] [address] | | | | | | 3 (Home) | | + +--------+ +--------+ + + | Bhumi Fontaine | Worker | Self | [birth year] | | NEED ADDRESS | | | s Comp | | 1956 | [phone] | [place] [address] | | | | | | 3 (Home) | | + +--------+ +--------+ + + | Bhumi Fontaine | Worker | Self | [birth year] | | NEED ADDRESS | | | s Comp | | 1956 | [phone] | [place] [address] | | | | | | 3 (Home) | | + +--------+ +--------+ + + Advance Directives Patient has advance care planning documents on file. For more information, please contact:[facility] [place] [address]
--- OUTSIDE RECORDS SUMMARY | ~2018-11-02 | XMS | Encounter Summary ---
Demographics + + + | Address | [address] | | | [place] [address] | + + + | Home Phone | | + + + | Preferred Language | Unknown | + + + | Marital Status | | + + + | Mosque Affiliation | 1013 | + + + | Race | Unknown | + + + | Ethnic Group | Unknown | + + + Author + + + | Author | [facility] | + + + | Organization | [facility] | + + + | Address | Unknown | + + + | Phone | Unavailable | + + + Support + + +---------+ + | Name | Relationship | Address | Phone | + + +---------+ + | Rolanda Lennon | ECON | Unknown | | + + +---------+ + Care Team Providers + +------+ + | Care Lump Inspector Name | Role | Phone | + [...] | | | | | Complex | [place], [place] | [place], | | | | | regional | [address] | [place] | | | | | pain | Phone: | [phone] | | | | | syndrome | [phone] | Phone: | | | | | type 1 of | Fax: | [phone] | | | | | left upper | [phone] | Fax: | | | | | extremity | | [phone] | + + + + + + [...] | | | | Nate Kelly | [facility], | | | | | | [place], | [place] [address] | | | | | | [place] | Phone: | | | | | | [phone] | [phone] | | | | | | Phone: | Fax: | | | | | | [phone] | [phone] | | | | | | Fax: | | | | | | | [phone] | | +--------+--------+ + + + + Encounter Details +--------+---------+ + + + | Date | Type | Department | Care Team | Description | +--------+---------+ + + + | 09/19/ | Office | [facility] | Minor Walton, | Pain and swelling of | | 2019 | Visit | ORTHO SPORTS | MD Андрей PALACIOS | left wrist (Primary | | | | MEDIC[facility] [place] | [place] [address] | Dx); Left elbow | | | | [address] | [phone] | pain; Complex | | | | [place] | | 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 [facility]: Orthopedic Surgery Patient Name:Bhumi Fontaine [...] MD This document has been prepared with [employer] voice recognition system. The possibility of "s ound alike" pipe line gauger errors, and additions, or deletions may occur. [...] | Visit | | [address] [facility] | | | | | | [place] [address] | | | | | | [phone] | | | | | | | [...] | + + + + + | [facility] | [address] | [place] [address] | | + + + + + [...] | + + + + + | [facility] | [address] | [place] [address] | | + + + + + [...]
[~2018-11-02 20:32] MED LIST changes: +ASPIRIN500 MG PO
[2018-11-02] MEDS ORDERED: GABAPENTIN300 MG PO (20:40)
--- NOTE | 2018-11-03 07:37 | EKG ---
[facility] [address] [place] [address] Signed Normal sinus rhythm Normal ECG When compared with ECG of 09-JUL-2017 12:23, No significant change was found Confirmed by WARREN SALGUERO MD ([id number]) on 11/03/2018 7:36:46 AM Electronically Signed By: WARREN SALGUERO MD 11/03/18 0737 PATIENT NAME: MATTHIEU JIANG Electrocardiogram DATE OF : 59 PHYSICIAN: WARREN SALGUERO MD REPORT #: [id number] REPORT IS CONFIDENTIAL AND NOT TO BE RELEASED WITHOUT AUTHORIZATION
== END 2018-11-03 00:28 | disposition home or self-care (01) ==
LOC: ED 20:32
DX: R07.9 Chest pain, unspecified (principal); Z87.442 Personal history of urinary calculi; Z90.49 Acquired absence of other specified parts of digestive tract; Z88.2 Allergy status to sulfonamides; Z88.1 Allergy status to other antibiotic agents; Z88.5 Allergy status to narcotic agent; Z88.6 Allergy status to analgesic agent; Z88.8 Allergy status to other drugs, medicaments and biological substances
CPT/HCPCS: 71045; 80053; 83735; 84484; 85025; 93005; 93010; 96374; 96375; 99285-25; J1200; J2270; J2405

== ENCOUNTER 2020-06-15 18:30 | Emergency (ER) | payer MEDICARE, OTHER ==
[~2020-06-15] VITALS: Ht 177.8 cm; Wt 912.6 kg
[~2020-06-15 18:30] MED LIST changes: +GABAPENTIN300 MG PO
[2020-06-15] MEDS ORDERED: ASPIRIN325 MG PO (18:41)
[2020-06-15] MEDS ORDERED: CYCLOBENZAPRINE10 MG PO (18:42)
[2020-06-15] MEDS ORDERED: NITROSTAT0.4 MG SL (18:48)
[2020-06-15] MEDS ORDERED: IPRATROPIU0.2 MG/1 M INH (18:48)
--- NOTE | 2020-06-15 19:07 | EKG ---
[facility] [address] [facility] [place], [place] [address] Signed Normal sinus rhythm Normal ECG When compared with ECG of 02-NOV-2018 20:36, No significant change was found Confirmed by WARREN SALGUERO MD ([id number]) on 06/15/2020 7:07:06 PM Electronically Signed By: WARREN SALGUERO MD 06/15/20 1907 PATIENT NAME: MATTHIEU JIANG Electrocardiogram DATE OF : 59 PHYSICIAN: WARREN SALGUERO MD REPORT #: [id number] REPORT IS CONFIDENTIAL AND NOT TO BE RELEASED WITHOUT AUTHORIZATION
[2020-06-15] MEDS ORDERED: MAALOX ADVANCE1 EACH PO (22:41)
[2020-06-15] MEDS ORDERED: CEPHALEXIN250 MG PO (22:41)
== END 2020-06-15 23:41 | disposition home or self-care (01) ==
LOC: ED 18:30
DX: N39.0 Urinary tract infection, site not specified (principal); R07.9 Chest pain, unspecified; J45.909 Unspecified asthma, uncomplicated; Z88.8 Allergy status to other drugs, medicaments and biological substances; Z88.1 Allergy status to other antibiotic agents; Z88.2 Allergy status to sulfonamides; Z88.5 Allergy status to narcotic agent; Z79.899 Other long term (current) drug therapy; Z79.82 Long term (current) use of aspirin; Z20.822 Contact with and (suspected) exposure to COVID-19
CPT/HCPCS: 71045; 80053; 81001; 83735; 84484; 85025; 85379; 93005; 93010; 96365; 96375; 99285-25; C9803; J0696; J1885; U0003

== ENCOUNTER 2020-12-21 20:28 | Emergency (ER) | payer MEDICARE, OTHER ==
[~2020-12-21] VITALS: Ht 177.8 cm; Wt 88.5 kg
[~2020-12-21 20:28] MED LIST changes: +ASPIRIN325 MG PO; +CEPHALEXIN250 MG PO; +CYCLOBENZAPRINE10 MG PO; +IPRATROPIU0.2 MG/1 M INH; +MAALOX ADVANCE1 EACH PO; +NITROSTAT0.4 MG SL
--- OUTSIDE RECORDS SUMMARY | 2020-12-21 20:30 | XMS ---
PreManage Notification: MATTHIEU JIANG Security Template Reproduction Technician Events No recent Security Events currently on file [facility] There are no care providers on record at this time. Maris has no Care Guidelines for this patient. Jeffrey VISIT COUNT (12 MO.) 2 [facility] TOTAL 2 NOTE: Visits indicate total known visits. ED/UCC VISIT TRACKING (12 MO.) 12/21/2020 20:28 [facility] [place] TYPE: Emergency COMPLAINT: - CHEST PAIN 06/15/2020 18:[address] [facility] [place] TYPE: Emergency COMPLAINT: - DYSURIA DIAGNOSES: - Urinary tract infection, site not specified - Allergy status to sulfonamides - Chest pain, unspecified - industrial cleaning technician (current) use of aspirin - Dysuria - Allergy status to other antibiotic agents - Other inspection engineer (current) drug therapy - Allergy status to narcotic agent - Allergy status to other drugs, medicaments and biological substances - Unspecified asthma, uncomplicated INPATIENT VISIT TRACKING (12 MO.) No inpatient visits to display in this time frame [email or web address]
--- NOTE | 2020-12-22 11:25 | EKG ---
[facility] [address] [facility] [place], [place] [address] Signed Sinus bradycardia Otherwise normal ECG When compared with ECG of 21-DEC-2020 20:32, (Unconfirmed) No significant change was found Confirmed by BRENT MUÑOZ DO ([id number]) on 12/22/2020 11:25:44 AM Electronically Signed By: BRENT MUÑOZ DO 12/22/20 1125 PATIENT NAME: MATTHIEU JIANG Electrocardiogram DATE OF : [birth year] PHYSICIAN: BRENT MUÑOZ DO REPORT #: [id number] REPORT IS CONFIDENTIAL AND NOT TO BE RELEASED WITHOUT AUTHORIZATION
--- NOTE | 2020-12-22 11:25 | EKG ---
[facility] [address] [facility] [place], [place] [address] Signed Normal sinus rhythm Normal ECG When compared with ECG of 15-JUN-2020 18:35, No significant change was found Confirmed by BRENT MUÑOZ DO ([id number]) on 12/22/2020 11:25:37 AM Electronically Signed By: BRENT MUÑOZ DO 12/22/20 1125 PATIENT NAME: MATTHIEU JIANG Electrocardiogram DATE OF : [birth year] PHYSICIAN: BRENT MUÑOZ DO REPORT #: [id number] REPORT IS CONFIDENTIAL AND NOT TO BE RELEASED WITHOUT AUTHORIZATION
== END 2020-12-22 01:25 | disposition home or self-care (01) ==
LOC: ED 20:28
DX: R07.89 Other chest pain (principal); Z88.2 Allergy status to sulfonamides; Z88.1 Allergy status to other antibiotic agents; Z88.5 Allergy status to narcotic agent; Z88.8 Allergy status to other drugs, medicaments and biological substances; Z79.899 Other long term (current) drug therapy; Z79.82 Long term (current) use of aspirin
CPT/HCPCS: 71045; 80053; 83690; 83735; 84484; 85025; 85379; 93005; 93010; 96374; 96375; 96376; 99285-25; J1170; J2405

== ENCOUNTER 2021-03-20 19:58 | Emergency (ER) | payer MEDICARE, OTHER ==
[~2021-03-20] VITALS: Ht 175.3 cm; Wt 82.9 kg
--- OUTSIDE RECORDS SUMMARY | 2021-03-20 20:00 | XMS ---
PreManage Notification: MATTHIEU JIANG Security Technical Aid Events No recent Security Events currently on file CRITERIA MET - [employer] CARE PROVIDERS [facility] ESCALERA [facility] 12/27/2020-Current PHONE: [phone] Maris has no Care Guidelines for this patient. EMalinda VISIT COUNT (12 MO.) 3 [facility] TOTAL 3 NOTE: Visits indicate total known visits. ED/UCC VISIT TRACKING (12 MO.) 03/20/2021 19:59 [facility] [place] TYPE: Emergency COMPLAINT: - LT EYE PAIN 12/21/2020 20:28 [facility] [place] TYPE: Emergency COMPLAINT: - CHEST PAIN DIAGNOSES: - Allergy status to other drugs, medicaments and biological substances - Other superintendent terminal (current) drug therapy - Other chest pain - Allergy status to narcotic agent - Allergy status to sulfonamides - Allergy status to other antibiotic agents - termite treater helper (current) use of aspirin 06/15/2020 18:31 [facility] [place] TYPE: Emergency COMPLAINT: - DYSURIA DIAGNOSES: - Urinary tract infection, site not specified - Allergy status to sulfonamides - Chest pain, unspecified - termite treater helper (current) use of aspirin - Dysuria - Allergy status to other antibiotic agents - Other [facility] ([facility]) drug therapy - Allergy status to narcotic agent - Allergy status to other drugs, medicaments and biological substances - Unspecified asthma, uncomplicated INPATIENT VISIT TRACKING (12 MO.) No inpatient visits to display in this time frame [email or web address]
[2021-03-20] MEDS ORDERED: AUGMENTIN 875-1 EACH PO (20:51)
== END 2021-03-20 21:08 | disposition home or self-care (01) ==
LOC: ED 19:58
DX: J32.1 Chronic frontal sinusitis (principal); H43.392 Other vitreous opacities, left eye; J45.909 Unspecified asthma, uncomplicated; E53.8 Deficiency of other specified B group vitamins; Z88.2 Allergy status to sulfonamides; Z88.5 Allergy status to narcotic agent; Z88.1 Allergy status to other antibiotic agents; Z88.8 Allergy status to other drugs, medicaments and biological substances; Z88.6 Allergy status to analgesic agent; Z79.82 Long term (current) use of aspirin; Z79.899 Other long term (current) drug therapy
CPT/HCPCS: 99283

== ENCOUNTER 2021-09-03 00:16 | Emergency (ER) | payer MEDICARE, OTHER ==
[~2021-09-03] VITALS: Ht 175.3 cm; Wt 70.8 kg
[~2021-09-03 00:16] MED LIST changes: +AUGMENTIN 875-1 EACH PO; +CLOPIDOGREL75 MG PO
[2021-09-03] MEDS ORDERED: ATORVASTATIN CA10 MG PO (00:25)
[2021-09-03] MEDS ORDERED: ADULT LOW DOSE81 MG PO (00:26)
[2021-09-03] MEDS ORDERED: CEPHALEXIN250 MG PO (00:26)
--- NOTE | 2021-09-04 13:45 | EKG ---
[facility] [address] [facility] [place] [address] Signed Normal sinus rhythm Normal ECG No previous ECGs available Confirmed by MINDY CHU MD ([id number]) on 09/04/2021 1:45:01 PM Electronically Signed By: MINDY CHU MD 09/04/21 1345 PATIENT NAME: MATTHIEU JIANG Electrocardiogram DATE OF : 59 PHYSICIAN: MINDY CHU MD REPORT #: [id number] REPORT IS CONFIDENTIAL AND NOT TO BE RELEASED WITHOUT AUTHORIZATION
--- NOTE | 2021-09-04 13:45 | EKG ---
[facility] [address] [place], [place] [address] Signed Normal sinus rhythm Normal ECG When compared with ECG of 03-SEP-2021 00:16, (Unconfirmed) No significant change was found Confirmed by MINDY CHU MD ([id number]) on 09/04/2021 1:45:04 PM Electronically Signed By: MINDY CHU MD 09/04/21 1345 PATIENT NAME: MATTHIEU JIANG Electrocardiogram DATE OF : 59 PHYSICIAN: MINDY CHU MD REPORT #: [id number] REPORT IS CONFIDENTIAL AND NOT TO BE RELEASED WITHOUT AUTHORIZATION
[2021-09-07] MEDS ORDERED: VITAMIN D3125 MCG PO (17:29)
[2021-09-07] MEDS ORDERED: CLOPIDOGREL75 MG PO (18:12)
== END 2021-09-03 03:24 | disposition home or self-care (01) ==
LOC: ED 00:16
DX: R07.89 Other chest pain (principal); R00.2 Palpitations; J45.909 Unspecified asthma, uncomplicated; Z88.2 Allergy status to sulfonamides; Z88.1 Allergy status to other antibiotic agents; Z88.5 Allergy status to narcotic agent; Z88.8 Allergy status to other drugs, medicaments and biological substances; Z79.899 Other long term (current) drug therapy; Z79.82 Long term (current) use of aspirin
CPT/HCPCS: 36415; 71045; 80053; 83735; 84484; 85025; 93005; 93010; 99285-25; A9270

== ENCOUNTER 2021-10-13 10:08 | Observation (INO) | payer MEDICARE, OTHER ==
[~2021-10-13] VITALS: Ht 175.3 cm; Wt 75.3 kg
[~2021-10-13 10:08] MED LIST changes: +ADULT LOW DOSE81 MG PO; +ALBUTEROL2.5 MG/3 M INH; +ATORVASTATIN CA10 MG PO; +CALCIUM500 MG PO; +DAILY VITE1 EAC1 PO; +FISH OIL 1,0001 EAC2 PO; +GLUCOSAMINE-CH1 EA19 PO; +KETOCONAZOLE15 GM TOP; +LEVOFLOXACIN TOP; +MUPIROCIN TOP; +ONDANSETRON ODT4 MG SL; +VITAMIN D3125 MC1 PO
--- NOTE | 2021-10-13 14:55 | NUR ---
PT ARRIVES TO FLOOR VIA STRETCHER AND ER STAFF. ACCOMPANED BY IN WHEELCHAIR. NEURO CHECK - R ARM DRIFT NOTED WHEN ASKED TO EXTEND ARMS WITH EYES CLOSED, OTHERWISE NEGATIVE FOR FINDINGS. PT NOTES TINGLING TO RIGHT FACE AND ARM/HAND BUT STATES IT IS IMPROVING. VS STABLE. R WRIST IV SITE PAINFUL WITH FLUSH - DC'D. PT USES PHONE TO CALL KITCHEN WITH FOOD ORDER. UP TO BATHROOM TO VOID. STEADY ON FEET, STANDY ASSIST. 900ML OF YELLOW URINE PRODUCED. ECHO IN PROGRESS - TELE APPLICATION DELAYED FOR THIS.
--- NOTE | 2021-10-13 16:26 | NUR ---
RN IN ROOM TO ROUND ON PT - PT SITTING UP IN BED VISITING WITH FAMILY. DENIES PAIN OR ANY NEW ONSET SX. 100% OF LUNCH EATEN. CALL LIGHT IN REACH.
[2021-10-13] MEDS ORDERED: UREA198 GM TOP (16:45)
--- NOTE | 2021-10-13 17:27 | NUR ---
RN IN ROOM TO ADMINISTER SCHEDULED MEDICATIONS. PT RESTING WITH EYES CLOSED UPON ENTERING ROOM-WAKES EASILY TO SOUND. PT DENIES PAIN, NAUSEA, DIZZINESS OR SOB. NEURO CHECK NEGATIVE FOR ANY FINDINGS. AA0 X 3.
--- NOTE | 2021-10-13 18:27 | NUR ---
MED REC COMPLETE
--- NOTE | 2021-10-13 18:32 | NUR ---
PT CONTINUES TO REST IN BED AFTER ARRIVING TO THE FLOOR THIS AFTERNOON. NEURO CHECKS Q4 - NO CHANGES. ONLY MILD NUMBNESS TO RIGHT HAND AND FACE. DENIES PAIN. ADEQUATE APPETITE. VS STABLE.
--- NOTE | 2021-10-13 20:08 | NUR ---
PT ON ROOM AIR, TELE#[address], SR, DENIES CP OR SOB. NEURO CHECKS WITH SLIGHT R FACIAL DROOP AT LIPS, WEAKNESS AND DRIFT AT R ARMS, LE INTACT. ALERT AND ORIENTED. TOLERATING LIQUIDS WELL. SL LAC PATENT. SPEECH CLEAR CALL LIGHT AND FLUIDS AT BEDSIDE.
--- NOTE | 2021-10-14 00:43 | NUR ---
EYES CLOSED, NO DISTRESS, ON ROOM AIR, CALL LIGHT AT HANDS REACH
--- NOTE | 2021-10-14 01:24 | NUR ---
pt on room air, awakes easily, much improved but still a slight r arm droop, barely visible r lip corner droop. denies CP or SOB, tele#[address], SR. up to br, minimum of assist, voided QS, back to bed, tolerating liquids well, no emesis. call light at hands reach
--- NOTE | 2021-10-14 03:03 | NUR ---
RESTING, EYES CLOSED, TELE#[address] SR, EYES CLOSED, NO DISTRESS, FLUIDS AND CALL LIGHT AT HANDS REACH
--- NOTE | 2021-10-14 05:18 | NUR ---
Pt alert and oriented, on room air, clear lungs, regular RR, tele#[address], SR, denies CP or SOB. Cont with neuro checks every four hours and improved have slight R arm drifting and facial numbness, very small improving R facial droop noted, clear speech, very minimum assist when up to br, steady gait. voiding QS, SL patent. uses call light, pleasant and cooperative, tolerating diet and liquids well.
--- NOTE | 2021-10-14 05:20 | NUR ---
IN TO GET VITALS, PT UP TO THE TOILET, SBA, PT VOIDED, THEN BRUSHED TEETH AGAIN, BACK TO BED
--- NOTE | 2021-10-14 05:32 | NUR ---
no facial droop, c/o light numbness facial, no arm drifting noted, strong boat builder and repairer, up to br SBA, tolerated well on return. tolerating liquids
--- NOTE | 2021-10-14 07:39 | NUR ---
REPORT RECEIVED FROM NIGHT RN ANGELA - PT SITTING UP IN CHAIR PERFORMING SELF CARE ADLS. STRAINER CLEANER CHANGING BED LINENS. PT DENIES NEEDS AT THIS TIME. AAO. CALL LIGHT IN REACH.
--- NOTE | 2021-10-14 09:03 | NUR ---
PT IS SITTING UP IN CHAIR. I&O AND VS CHARTED CALL LIGHT WITHIN REACH NO FURTHER TASKS AT THIS TIME
--- NOTE | 2021-10-14 09:40 | NUR ---
RN IN ROOM TO ASSESS PT. PT SITTING UP IN CHAIR VISITING WITH UPON ENTRY. IV SITE FLUSHES WITHOUT DIFFICULTY. NEURO CHECK NEGATIVE OF ANY FINDINGS OTHER THAN PERSISTANT TINGLING SENSATION IN R SIDE PT FACE/EYE. PT STATES SHE IS HAVING HER USUAL ARTHRITIS PAIN - TYLENOL PRN ADMINISTERED. PT DENIES FURTHER NEEDS. CALL LIGHT IN REACH.
--- NOTE | 2021-10-14 12:52 | NUR ---
RN IN ROOM TO PROVIDE DC EDUCATION. PT STATES UNDERSTANDING. NO QUESTIONS OR CONCERNS AT THIS TIME. AND SISTER AT BEDSIDE. IV REMOVED, CATH INTACT. PT REQUESTS SHOWER BEFORE GOING HOME.
--- NOTE | 2021-10-14 17:20 | EKG ---
[facility] [address] [facility] [place] [address] Signed Normal sinus rhythm Normal ECG No previous ECGs available Confirmed by MINDY CHU MD ([id number]) on 10/14/2021 5:20:21 PM Electronically Signed By: MINDY CHU MD 10/14/21 1720 PATIENT NAME: MATTHIEU JIANG Electrocardiogram DATE OF : 59 PHYSICIAN: MINDY CHU MD REPORT #: [id number] REPORT IS CONFIDENTIAL AND NOT TO BE RELEASED WITHOUT AUTHORIZATION
== END 2021-10-14 13:25 | disposition home or self-care (01) ==
LOC: ED 10:08 → MS 10:10
PROVIDERS: ADMIT Internal Medicine; ATTEND Internal Medicine
DX: R20.2 Paresthesia of skin (principal); I20.1 Angina pectoris with documented spasm; E78.5 Hyperlipidemia, unspecified; Z88.1 Allergy status to other antibiotic agents; Z88.2 Allergy status to sulfonamides; Z88.8 Allergy status to other drugs, medicaments and biological substances; Z20.822 Contact with and (suspected) exposure to COVID-19
CPT/HCPCS: 36415; 70450; 70496; 70498; 71045; 80048; 80061; 83036; 83735; 84484; 85025; 87502; 93005; 93010; 93306; 99285-25; A9270; C9803; J1650; Q9967; U0003

== ENCOUNTER 2021-10-27 14:59 | Emergency (ER) | payer MEDICARE, OTHER ==
[~2021-10-27] VITALS: Ht 175.3 cm; Wt 74.9 kg
[~2021-10-27 14:59] MED LIST changes: +UREA198 GM TOP
--- OUTSIDE RECORDS SUMMARY | 2021-10-27 15:06 | XMS ---
PreManage Notification: MATTHIEU JIANG Security Typewriter Tester Events No recent Security Events currently on file CRITERIA MET - [facility] - 2 Visits in 30 Days CARE PROVIDERS [facility] ESCALERA [facility] 12/27/2020-Current PHONE: [phone] Maris has no Care Guidelines for this patient. Jeffrey VISIT COUNT (12 MO.) 7 [facility] TOTAL 7 NOTE: Visits indicate total known visits. ED/C VISIT TRACKING (12 MO.) 10/27/2021 15:00 [facility] [place] TYPE: Emergency COMPLAINT: - R LEG NUMB/TINGLING/PAIN FROM BACK 10/13/2021 10:09 [facility] [place] TYPE: Emergency COMPLAINT: - MULTIPLE COMPLAINTS 09/07/2021 06:58 [facility] [place] TYPE: Emergency COMPLAINT: - VOMITING, CHEST PAIN 09/03/2021 00:16 [facility] [place] TYPE: Emergency COMPLAINT: - CHEST PAIN DIAGNOSES: - Allergy status to sulfonamides - Other chest pain - Palpitations - Allergy status to narcotic agent - Allergy status to other antibiotic agents - Allergy status to other drugs, medicaments and biological substances - Other termite control servicer (current) drug therapy - Unspecified asthma, uncomplicated - [facility] (current) use of aspirin 05/18/2021 22:06 [facility] [place] TYPE: Emergency COMPLAINT: - VISION PROBLEM, COLD SYMPTOMS 03/20/2021 19:59 [facility] [place] TYPE: Emergency COMPLAINT: - LT EYE PAIN DIAGNOSES: - [facility] (current) use of aspirin - Allergy status to other antibiotic agents - Other care home (current) drug therapy - Deficiency of other specified B group vitamins - Allergy status to other drugs, medicaments and biological substances - Allergy status to sulfonamides - Other vitreous opacities, left eye - Ocular pain, left eye - Allergy status to narcotic agent - Allergy status to analgesic agent - Unspecified asthma, uncomplicated - Chronic frontal sinusitis 12/21/2020 20:28 [facility] [place] TYPE: Emergency COMPLAINT: - CHEST PAIN DIAGNOSES: - Allergy status to other drugs, medicaments and biological substances - Other termite control servicer (current) drug therapy - Other chest pain - Allergy status to narcotic agent - Allergy status to sulfonamides - Allergy status to other antibiotic agents - termite helper (current) use of aspirin INPATIENT VISIT TRACKING (12 MO.) 10/13/2021 10:10 [facility] [place] TYPE: Observation COMPLAINT: - TIA DIAGNOSES: - Transient cerebral ischemic attack, unspecified - Contact with and (suspected) exposure to COVID-19 - Allergy status to other antibiotic agents - Paresthesia of skin - Angina pectoris with documented spasm - Allergy status to other drugs, medicaments and biological substances - Allergy status to sulfonamides - Hyperlipidemia, unspecified 09/07/2021 06:59 [facility] [place] TYPE: Observation COMPLAINT: - GASTRITIS, HYPOTENSION DIAGNOSES: - Allergy status to analgesic agent - Allergy status to narcotic agent - Allergy status to sulfonamides - Elevation of levels of liver transaminase levels - Allergy status to other antibiotic agents - Unspecified asthma, uncomplicated - Personal history of other specified conditions - Hypotension, unspecified - Dehydration - Allergy status to other drugs, medicaments and biological substances - Acute gastritis without bleeding - Hyperlipidemia, unspecified - Other specified abnormal findings of blood chemistry - Personal history of transient ischemic attack (TIA), and cerebral infarction without residual deficits - Contact with and (suspected) exposure to COVID-19 05/18/2021 22:07 [facility] [place] TYPE: Observation COMPLAINT: - RULE OUT CVA DIAGNOSES: - Transient cerebral ischemic attack, unspecified - Allergy status to narcotic agent - [facility] (current) use of aspirin - Allergy status to sulfonamides - Unspecified asthma, uncomplicated - Hypercalcemia - Allergy status to other drugs, medicaments and biological substances - Allergy status to other antibiotic agents - Contact with and (suspected) exposure to COVID-19 [email or web address]
== END 2021-10-27 19:18 | disposition short-term general hospital (02) ==
LOC: ED 14:59
DX: M54.10 Radiculopathy, site unspecified (principal); J45.909 Unspecified asthma, uncomplicated; Z79.899 Other long term (current) drug therapy; Z88.2 Allergy status to sulfonamides; Z88.1 Allergy status to other antibiotic agents; Z88.5 Allergy status to narcotic agent; Z79.82 Long term (current) use of aspirin
CPT/HCPCS: 36415; 80053; 85025; 96374; 99284-25; J1100

== ENCOUNTER 2021-11-23 06:05 | Day surgery (SDC) | payer MEDICARE, OTHER ==
[~2021-11-23] VITALS: Ht 175.3 cm; Wt 71.8 kg
[~2021-11-23 06:05] MED LIST changes: +SYSTANE 0.3-0.415 ML OPTH
[2021-11-23] MEDS ORDERED: ACETAMINOPHEN500 MG PO (06:25)
[2021-11-23] MEDS ORDERED: ALEVE220 MG PO (06:28)
--- NOTE | 2021-11-23 08:12 | NUR ---
PT ALERT,ORIENTED AND WAITING FOR ULTRASOUND IV ASSISTANCE. PT SEEMS TO BE DEALING WITH DELAY APPROPRIATELY. REQUESTED WARM BLANKET-PROVIDED. PT ALSO REQUESTED PRAYER AND UNSURE IF RIDE FOR DC IS CORRECT. BENJY PATE TO FOLLOW UP. GAVE BLESSING, WILL FOLLOW
--- NOTE | 2021-11-23 08:26 | NUR ---
11/23/21 0826 Saba Briscoe 0822 PATIENT ARRIVES TO PACU UNRESPONSIVE TO PAIN. RESP EVEN AND UNLABORED, MASK AT 10 LITERS, DECREASED TO 6 LITERS.
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
== END 2021-11-23 09:00 | disposition home or self-care (01) ==
LOC: OPS 06:05 → DS 06:05 → OPS 08:30 → DS 08:30 → OPS 09:00
PROVIDERS: ATTEND Colon & Rectal Surgery
PROC: 0DJD8ZZ Inspection of Lower Intestinal Tract, Via Natural or Artificial Opening Endoscopic (ICD-10-PCS; principal; 2021-11-23 08:30)
DX: K64.8 Other hemorrhoids (principal); R15.1 Fecal smearing; Q43.8 Other specified congenital malformations of intestine; M48.00 Spinal stenosis, site unspecified; J45.909 Unspecified asthma, uncomplicated; K76.0 Fatty (change of) liver, not elsewhere classified; N18.2 Chronic kidney disease, stage 2 (mild); D63.1 Anemia in chronic kidney disease; Z88.5 Allergy status to narcotic agent; Z88.1 Allergy status to other antibiotic agents; Z88.8 Allergy status to other drugs, medicaments and biological substances; F98.1 Encopresis not due to a substance or known physiological condition
CPT/HCPCS: J2704; J7121

== ENCOUNTER 2021-12-25 20:48 | Emergency (ER) | payer MEDICARE, OTHER ==
[~2021-12-25] VITALS: Ht 177.8 cm; Wt 74.9 kg
[~2021-12-25 20:48] MED LIST changes: +ACETAMINOPHEN500 MG PO; +ALEVE220 MG PO
--- OUTSIDE RECORDS SUMMARY | 2021-12-25 20:50 | XMS ---
PreManage Notification: MATTHIEU JIANG Security Apprentice Painter Hand Events No recent Security Events currently on file CRITERIA MET - 6 ED Visits in 6 Months - PDMP CARE PROVIDERS NATO ESCALERA [facility] 12/27/2020-Current PHONE: [phone] Maris has no Care Guidelines for this patient. E.DNeetu VISIT COUNT (12 MO.) 1 [place] [id number] LEA Escalante Neetu TOTAL 8 NOTE: Visits indicate total known visits. ED/UCC VISIT TRACKING (12 MO.) 12/25/2021 20:49 [facility] [place] TYPE: Emergency COMPLAINT: - ALLERGIC REACTION 10/27/2021 21:56 [facility] TYPE: Emergency DIAGNOSES: - Spinal stenosis, lumbar region without neurogenic claudication - Full incontinence of feces - Spinal Stenosis - Leg Pain - Radiculopathy, lumbar region - Weakness 10/27/2021 15:00 [facility] [place] TYPE: Emergency COMPLAINT: - R LEG NUMB/TINGLING/PAIN FROM BACK DIAGNOSES: - Unspecified asthma, uncomplicated - Allergy status to sulfonamides - Radiculopathy, site unspecified - Pain in right leg - Other termite exterminator (current) drug therapy - exterminator termite (current) use of aspirin - Allergy status to other antibiotic agents - Allergy status to narcotic agent 10/13/2021 10:09 [facility] [place] TYPE: Emergency COMPLAINT: - MULTIPLE COMPLAINTS [...] drugs, medicaments and biological substances - Other correction (current) drug therapy - Unspecified asthma, uncomplicated - halfway (current) use of aspirin 05/18/2021 22:06 [facility] [place] TYPE: Emergency COMPLAINT: - VISION PROBLEM, COLD SYMPTOMS [facility]20[facility]2021 19:59 [facility] COMPLAINT: - LT EYE PAIN DIAGNOSES: - halfway (current) use of aspirin - Allergy status to other antibiotic agents - Other correction (current) drug therapy - Deficiency of other specified B group vitamins - Allergy status to other drugs, medicaments and biological substances - Allergy status to sulfonamides - Other vitreous opacities, left eye - Ocular pain, left eye - Allergy status to narcotic agent - Allergy status to analgesic agent - Unspecified asthma, uncomplicated - Chronic frontal sinusitis INPATIENT VISIT TRACKING (12 MO.) [facility]27[facility]2021 21:56 [facility] TYPE: Internal Medicine DIAGNOSES: - Radiculopathy, lumbar region - Low back pain, unspecified - Spinal stenosis, lumbar region without neurogenic claudication - Unspecified urinary incontinence - Other symptoms and signs involving the musculoskeletal system - Full incontinence of feces - Other chronic pain 10/13/2021 10:10 [facility] [place] TYPE: Observation COMPLAINT: - TIA DIAGNOSES: - Transient cerebral ischemic attack, unspecified - Contact with and (suspected) exposure to COVID-19 - Allergy status to other antibiotic agents - Paresthesia of skin - Angina pectoris with documented spasm - Allergy status to other drugs, medicaments and biological substances - Allergy status to sulfonamides - Hyperlipidemia, unspecified 09/07/2021 06:59 [facility] [place] TYPE: Observation COMPLAINT: - GASTRITIS, [...] - Allergy status to narcotic agent - halfway (current) use of aspirin - Allergy status to sulfonamides - Unspecified asthma, uncomplicated - Hypercalcemia - Allergy status to other drugs, medicaments and biological substances - Allergy status to other antibiotic agents - Contact with and (suspected) exposure to COVID-19 [email or web address]
[2021-12-25] MEDS ORDERED: GABAPENTIN300 MG PO (21:04)
== END 2021-12-25 22:24 | disposition home or self-care (01) ==
LOC: ED 20:48
DX: T63.441A Toxic effect of venom of bees, accidental (unintentional), initial encounter (principal); Z88.2 Allergy status to sulfonamides; Z88.5 Allergy status to narcotic agent; Z88.8 Allergy status to other drugs, medicaments and biological substances; Z79.899 Other long term (current) drug therapy; Z79.82 Long term (current) use of aspirin
CPT/HCPCS: J7512

== ENCOUNTER 2022-06-29 20:22 | Emergency (ER) | payer MEDICARE, OTHER ==
[~2022-06-29] VITALS: Ht 177.8 cm; Wt 83.1 kg
--- OUTSIDE RECORDS SUMMARY | 2022-06-29 20:24 | XMS ---
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 E.Latisha [facility] T[facility] NOTE: Visits indicate total known visits. ED/C VISIT TRACKING (12 MO.) 06/29/2022 20:22 LEA Santamaria TYPE: Emergency COMPLAINT: - COUGH, CHEST PAIN, WEAKNESS 12/25/2021 20:49 [facility] [place] TYPE: Emergency COMPLAINT: - ALLERGIC REACTION DIAGNOSES: - Allergy status to other drugs, medicaments and biological substances - Allergy status to narcotic agent - Allergy status to sulfonamides - extermination inspector (current) use of aspirin - Other retirement (current) drug therapy - Toxic effect of venom of bees, accidental (unintentional), initial encounter 10/27/2021 21:56 [facility] TYPE: Emergency DIAGNOSES: - Radiculopathy, lumbar region - Spinal Stenosis - Spinal stenosis, lumbar region without neurogenic claudication - Weakness - Leg Pain - Full incontinence of feces 10/27/2021 15:00 [facility] [place] TYPE: Emergency COMPLAINT: - R LEG NUMB/TINGLING/PAIN FROM BACK DIAGNOSES: - Allergy status to other antibiotic agents - Other watermaster (current) drug therapy - Radiculopathy, site unspecified - Unspecified asthma, uncomplicated - Allergy status to narcotic agent - detention (current) use of aspirin - Pain in right leg - Allergy status to sulfonamides 10/13/2021 10:09 [facility] [place] TYPE: Emergency COMPLAINT: - MULTIPLE COMPLAINTS 09/07/2021 06:58 [facility] [place] TYPE: Emergency COMPLAINT: - VOMITING, CHEST PAIN 09/03/2021 00:16 [facility] [place] TYPE: Emergency COMPLAINT: - CHEST PAIN DIAGNOSES: - Other retirement (current) drug therapy - Allergy status to other antibiotic agents - Palpitations - Allergy status to sulfonamides - Unspecified asthma, uncomplicated - Allergy status to other drugs, medicaments and biological substances - Allergy status to narcotic agent - Other chest pain - extermination inspector (current) use of aspirin INPATIENT VISIT TRACKING (12 MO.) 10/27/2021 21:56 [facility] TYPE: Internal Medicine DIAGNOSES: - Other chronic pain - Other symptoms and signs involving the musculoskeletal system - Spinal stenosis, lumbar region without neurogenic claudication - Radiculopathy, lumbar region - Full incontinence of feces - Unspecified urinary incontinence - Low back pain, unspecified 10/13/2021 10:10 LEA Santamaria TYPE: Observation COMPLAINT: - TIA DIAGNOSES: - Allergy status to sulfonamides - Angina pectoris with documented spasm - Allergy status to other antibiotic agents - Transient cerebral ischemic attack, unspecified - Hyperlipidemia, unspecified - Allergy status to other drugs, medicaments and biological substances - Paresthesia of skin - Contact with and (suspected) exposure to COVID-19 09/07/2021 06:59 [facility] [place] TYPE: Observation COMPLAINT: - GASTRITIS, HYPOTENSION DIAGNOSES: - Personal history of other specified conditions - Personal history of transient ischemic attack (TIA), and cerebral infarction without residual deficits - Allergy status to other antibiotic agents - Hyperlipidemia, unspecified - Allergy status to sulfonamides - Allergy status to other drugs, medicaments and biological substances - Allergy status to analgesic agent - Hypotension, unspecified - Contact with and (suspected) exposure to COVID-19 - Unspecified asthma, uncomplicated - Other specified abnormal findings of blood chemistry - Elevation of levels of liver transaminase levels - Acute gastritis without bleeding - Allergy status to narcotic agent - Dehydration [email or web address]
[2022-06-29] MEDS ORDERED: BENZONATATE100 MG PO (22:47)
[2022-06-29] MEDS ORDERED: CYCLOBENZAPRINE10 MG PO (22:47)
== END 2022-06-29 23:07 | disposition home or self-care (01) ==
LOC: ED 20:22
DX: U07.1 COVID-19 (principal); M94.0 Chondrocostal junction syndrome [Tietze]; J45.909 Unspecified asthma, uncomplicated; Z87.442 Personal history of urinary calculi; Z88.2 Allergy status to sulfonamides; Z88.1 Allergy status to other antibiotic agents; Z88.5 Allergy status to narcotic agent; Z88.8 Allergy status to other drugs, medicaments and biological substances; Z91.030 Bee allergy status; Z79.899 Other long term (current) drug therapy
CPT/HCPCS: 36415; 71045; 80053; 84484; 85025; 85610; 87502; 99285-25; C9803; U0003

== ENCOUNTER 2023-03-14 23:42 | Emergency (ER) | payer MEDICARE, OTHER ==
[~2023-03-14] VITALS: Ht 177.8 cm; Wt 86.0 kg
[~2023-03-14 23:42] MED LIST changes: +BENZONATATE100 MG PO
[2023-03-15 00:13] LABS: BASOPHILS 1.1 % (0-2); EOSINOPHILS 2.2 % (0-6); HEMATOCRIT 39.6 % (35.0-50.0); LYMPHOCYTES 32.1 % (24-44); MCH 30.1 (27-36); MCHC 32.8 g/dl (30-36); MCV 91.7 fl (81-99); MONOCYTES 12.5 % (0-12); NEUTROPHILS 52.1 % (39-80); PLATELET COUNT 218 K/uL (140-440); RBC 4.31 M/ul (4.3-5.7); RDW 13.5 (10.5-15.0)
[2023-03-15 00:35] LABS: ALBUMIN 2.9 g/dL (3.4-5.0); ALBUMIN/GLOBULIN RATIO 0.76 (1.1-2.4); BILIRUBIN, TOTAL 0.2 ng/dL (0.2-1.0); BUN/CREATININE RATIO 26.96 (6.0-28.6); CALCIUM 8.8 mg/dL (8.5-10.1); CREATININE, SERUM 0.89 mg/dL (0.55-1.02); MAGNESIUM 1.9 mg/dL (1.8-2.4); PROTEIN, TOTAL 6.7 g/dL (6.4-8.2)
[2023-03-15] MEDS ORDERED: BENZONATATE100 MG PO (02:33)
[2023-03-15 02:55] VITALS: BP 121/62
--- NOTE | 2023-03-16 12:14 | EKG ---
[facility] [address] [place], [place] [address] Signed Normal sinus rhythm Normal ECG When compared with ECG of 13-OCT-2021 10:08, No significant change was found Confirmed by DORCAS BEDOLLA MD ([id number]) on 03/16/2023 12:14:03 PM Electronically Signed By: DORCAS BEDOLLA 03/16/23 1214 PATIENT NAME: MATTHIEU JIANG Electrocardiogram DATE OF : 59 PHYSICIAN: DORCAS BEDOLLA REPORT #: [id number] REPORT IS CONFIDENTIAL AND NOT TO BE RELEASED WITHOUT AUTHORIZATION
== END 2023-03-15 02:56 | disposition home or self-care (01) ==
LOC: ED 23:42
PROVIDERS: Internal Medicine
DX: R07.2 Precordial pain (principal); J45.909 Unspecified asthma, uncomplicated; Z20.822 Contact with and (suspected) exposure to COVID-19; Z88.2 Allergy status to sulfonamides; Z88.1 Allergy status to other antibiotic agents; Z88.5 Allergy status to narcotic agent; Z88.8 Allergy status to other drugs, medicaments and biological substances; Z91.030 Bee allergy status; Z79.899 Other long term (current) drug therapy; Z79.82 Long term (current) use of aspirin
CPT/HCPCS: 36415; 71045; 80053; 83735; 83880; 84484; 85025; 93005; 93010; 96374; 99285-25; C9803; J1100

== ENCOUNTER 2024-10-13 16:31 | Emergency (ER) | payer MEDICARE, OTHER ==
[~2024-10-13] VITALS: Ht 177.8 cm; Wt 90.4 kg
[2024-10-13] MEDS ORDERED: ondansetron HCL 4 MG/2 ML VIAL IV ONE (17:00)
[2024-10-13] MEDS ORDERED: SODIUM CHLORIDE 0.9% 1,000 ML IV ONE (17:00)
[2024-10-13 17:03] LABS: BASOPHILS 0.2 % (0-2); EOSINOPHILS 1.4 % (0-6); HEMATOCRIT 40.6 % (35.0-50.0); HEMOGLOBIN 13.9 g/dL (12.0-18.0); LYMPHOCYTES 5.1 % (24-44); MCH 31.3 (27-36); MCHC 34.4 g/dl (30-36); MCV 91.2 fl (81-99); MONOCYTES 7.3 % (0-12); PLATELET COUNT 181 K/uL (140-440); RBC 4.45 M/ul (4.3-5.7); RDW 12.9 (10.5-15.0)
[2024-10-13 17:20] LABS: ALBUMIN 3.1 g/dL (3.4-5.0); ALBUMIN/GLOBULIN RATIO 0.91 (1.1-2.4); ANION GAP 14.7 (7-21); BILIRUBIN, TOTAL 0.4 mg/dL (0.2-1.0); BUN/CREATININE RATIO 19.79 (6.0-28.6); CALCIUM 8.5 mg/dL (8.5-10.1); CREATININE, SERUM 0.96 mg/dL (0.55-1.02); POTASSIUM 3.7 mmol/L (3.5-5.1); PROTEIN, TOTAL 6.5 g/dL (6.4-8.2)
[2024-10-13 18:03] LABS: BILIRUBIN, URINE NEGATIVE (negative); BLOOD/HGB, URINE NEGATIVE (Negative); KETONE, URINE NEGATIVE (Negative); LEUK ESTERASE, URINE SMALL (negative); NITRITE, URINE POSITIVE (negative)
[2024-10-13 18:08] LABS: BACTERIA, URINE 2+ /hpf (negative); CASTS, URINE NONE SEEN \\lpf; COLLECTION TYPE, URINE CLEAN CATCH; CRYSTALS, URINE NONE SEEN (0-1+); EPITHELIAL CELLS, URINE NONE SEEN /lpf (0-1+); RED BLOOD CELLS, URINE 0-1 /hpf (0-5); REFLEX CULTURE, URINE Yes (No); WHITE BLOOD CELLS, URINE 21-40 /HPF (0-5)
[2024-10-13] MEDS ORDERED: CEFTRIAXONE SODIUM 2 GM in SODIUM CHLORIDE 0.9% 100 ML IV ONE (18:15)
[2024-10-13 18:29] LABS: PROTEIN, CSF 58 mg/dL (15-45)
[2024-10-13 18:40] LABS: CLARITY, CEREBROSPINAL FLUID CLEAR; COLOR, CEREBROSPINAL FLUID COLORLESS; RBC, CEREBROSPINAL FLUID 2; WBC, CEREBROSPINAL FLUID 2
[2024-10-13] MEDS ORDERED: CEPHALEXIN500 M1 PO (19:09)
[2024-10-13 19:14] VITALS: BP 116/65
== END 2024-10-13 19:20 | disposition home or self-care (01) ==
LOC: ED 16:31
PROVIDERS: Emergency Medicine
DX: N39.0 Urinary tract infection, site not specified (principal); J45.909 Unspecified asthma, uncomplicated
CPT/HCPCS: 36415; 62270; 80053; 81001; 82945; 82947; 84157; 85025; 86140; 87070; 87075; 87088; 87186; 87205; 89051; 99284-25; J0696; J2405; J7030

== ENCOUNTER 2024-10-18 09:13 | Emergency (ER) | payer MEDICARE, OTHER ==
[~2024-10-18] VITALS: Ht 177.8 cm; Wt 86.9 kg
[~2024-10-18 09:13] MED LIST changes: +CEPHALEXIN500 M1 PO
--- OUTSIDE RECORDS SUMMARY | 2024-10-18 09:17 | XMS ---
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 Jeffrey VISIT COUNT (12 MO.) 3 [facility] TOTAL 3 NOTE: Visits indicate total known visits. ED/UCC VISIT TRACKING (12 MO.) 10/18/2024 09:13 [facility] [place] TYPE: Emergency COMPLAINT: - LEFT LEG PAIN 10/13/2024 16:31 [facility] [place] TYPE: Emergency COMPLAINT: - BACK PAIN DIAGNOSES: - Low back pain, unspecified - Unspecified asthma, uncomplicated - Urinary tract infection, site not specified 01/15/2024 22:53 [facility] [place] TYPE: Emergency COMPLAINT: - CHEST PAIN DIAGNOSES: - Allergy status to narcotic agent - Allergy status to other antibiotic agents - Allergy status to other drugs, medicaments and biological substances - Allergy status to sulfonamides - Bee allergy status - Chest pain, unspecified - COVID-19 - intermediate project manager (current) use of aspirin - Old myocardial infarction - Other chest pain - Other insect allergy status - Other fdc (current) drug therapy - Personal history of urinary calculi - Unspecified asthma, uncomplicated INPATIENT VISIT TRACKING (12 MO.) No inpatient visits to display in this time frame [email or web address]
[2024-10-18] MEDS ORDERED: CEPHALEXIN500 MG PO (09:26)
[2024-10-18] MEDS ORDERED: SODIUM FLUORID DT (09:26)
[2024-10-18] MEDS ORDERED: FLUCONAZOLE150 MG PO (09:26)
[2024-10-18 10:00] VITALS: BP 116/81
== END 2024-10-18 10:00 | disposition home or self-care (01) ==
LOC: ED 09:13
DX: M79.605 Pain in left leg (principal); J45.909 Unspecified asthma, uncomplicated; Z88.0 Allergy status to penicillin; Z88.5 Allergy status to narcotic agent; Z88.8 Allergy status to other drugs, medicaments and biological substances; Z91.030 Bee allergy status; Z79.2 Long term (current) use of antibiotics; Z79.899 Other long term (current) drug therapy
CPT/HCPCS: 93971; 99283-25